=== PATIENT | male | born 1945 | race Caucasian/White ===

== ENCOUNTER → 2019-07-06 11:17 | Outpatient (CLI) | payer BC, MEDICARE, SELFPAY ==
--- NOTE | 2019-07-06 11:32 | XR_ITS ---
PROCEDURE: XR LUMBAR SPINE MIN 4V CLINICAL INDICATION: ACUTE MIDLINE LOW BACK PAIN COMPARISON: No exams were available for comparison FINDINGS: Bridging osteophytes are noted on the left at L2-L3. There is degenerative disc disease from L2-S1 worse at L4-5 and L5-S1 levels with bridging osteophytes anteriorly from L2-S1. There are facet arthritic changes at L5-S1. No fracture or dislocation. No lytic or blastic change. IMPRESSION: Lumbar spondylosis with degenerative disc disease, osteophyte formation, and facet arthritic change Dictated by: Joe Salter MD 07/06/2019 12:26 Electronically signed by Joe Salter MD in [place] 07/06/2019 12:26
== END ==
PROVIDERS: PCP Family Medicine; Visit Provider Family Medicine
DX: M54.5 Low back pain (principal)
CPT/HCPCS: 72110

== ENCOUNTER 2020-06-26 09:45 | Emergency (ER) | payer BC, MEDICARE, SELFPAY ==
--- NOTE | 2020-06-26 10:27 | HMH.EDUTC ---
[facility] [place] Clinical Impression: Exposure to COVID-19 virus Disposition: Home, Self-Care Condition on Discharge: Good Instructions: Preventing the Spread of Coronavirus Discharge Instructions Additional Instructions: Drink plenty of fluids. Take tylenol for pain or fever. Return if you begin to have difficulty breathing. Follow up with your regular doctor. GO TO THE ER FOR ANY WORSENING SYMPTOMS Referrals: Daquan Mack MD [Primary Care Provider] - Time of Disposition: 10:47 Medical Decision Making - Medical Records Medical records reviewed: No: I reviewed the patient's medical records. - Ernie Inquiry Pt receiving controlled substance: No Vital Signs: 06/26/20 10:46 06/26/20 11:03 Temperature 98.3 F 98 F Temperature Source Oral Oral Pulse Rate 78 Pulse Rate [Right] 75 Respiratory Rate 16 16 Blood Pressure 173/74 H Blood Pressure [Right Arm] 173/80 H Blood Pressure Mean [Right Arm] 111 Blood Pressure Source Automatic Cuff Blood Pressure Source [Right Arm] Automatic Cuff Blood Pressure Position Sitting Blood Pressure Position [Right Arm] Sitting 02 Sat by Pulse Oximetry 98 Oxygen Delivery Method Room Air Room Air [facility] [place] - General Stated complaint: Covid test Time Seen by Provider: 06/26/20 10:27 - History of Present Illness Provider Complaint: He was exposed to covid. He denies any symptoms at this time. [facility] History - Hepatitis A Screen Attestation statement:: This patient has been screened for Hepatitis A risk factors. I have reviewed the patient's past medical history: Yes ROS Obtained: Yes All systems reviewed & no additional complaints - Constitutional Constitutional: Reports system reviewed and no additional complaints, except as docu - Eyes Eyes: Reports system reviewed and no additional complaints, except as docu - ENT Ears, Nose, Mouth, and Throat: Reports system reviewed and no additional complaints, except as docu - Cardiovascular Cardiovascular: Reports system reviewed and no additional complaints, except as docu - Respiratory Respiratory: Yes system reviewed and no additional complaints, except as docu - Gastrointestinal Gastrointestingal: Reports: system reviewed and no additional complaints, except as docu Physical Exam - General General appearance: alert, in no apparent distress - Head Head exam: atraumatic, normocephalic, normal inspection - Eye Eye exam: Present: normal appearance, PERRL, EOMI - ENT ENT exam: Present: normal exam, normal oropharynx, mucous membranes moist, TM's normal bilaterally, normal external ear exam - Neck Neck exam: Present: normal inspection, full ROM, trachea midline. Absent: meningismus, lymphadenopathy - Chest Chest inspection: Present: normal inspection, symmetric chest wall rise. Absent: tenderness - Respiratory Respiratory exam: Present: normal lung sounds bilaterally. Absent: respiratory distress - Cardiovascular Cardiovascular exam: Present: regular rate, normal rhythm. Absent: JVD - Abdominal Exam Abdominal exam: Present: soft, normal bowel sounds. Absent: distention, tenderness, guarding - Extremities Exam Extremities exam: Present: normal inspection, full ROM, normal capillary refill. Absent: calf tenderness - Back Exam Back exam: Present: normal inspection. Absent: tenderness - Neurological Exam Neurological exam: Present: alert, oriented X3 - Psychiatric Psychiatric exam: Present: normal affect, normal mood - Skin Skin exam: Present: warm, dry, intact, normal color - Lymphatic Lymphatic Findings: no adenopathy
[2020-06-26 10:46] VITALS: BP 173/80; PULSE 75; RESP 16; TEMP 36.8; O2SAT 98; BMI 35.4
[2020-06-26 11:03] VITALS: BP 173/74; PULSE 78; RESP 16; TEMP 36.6; O2SAT 98
== END 2020-06-26 11:04 | disposition home or self-care (01) ==
PROVIDERS: Emergency Provider Nurse Practitioner Family; PCP Family Medicine
DX: Z20.828 Contact with and (suspected) exposure to other viral communicable diseases (principal)
CPT/HCPCS: 99201; U0003

== ENCOUNTER 2020-07-03 07:56 | Emergency (ER) | payer OTHER, SELFPAY ==
[2020-07-03 08:02] VITALS: BP 158/77; PULSE 93; RESP 17; TEMP 36.7; O2SAT 93; BMI 34.4
--- NOTE | 2020-07-03 08:16 | CT_ITS ---
PROCEDURE: CT FACIAL BONES WO CON CLINICAL HISTORY: trauma Posttraumatic pain, nasal injury with pain and swelling COMPARISON: No exams were available for comparison TECHNIQUE: Axial images obtained with sagittal and coronal reformats. All CT scans at the facility use one or more dose reduction, viz: automated exposure control, ma/kV adjustment per patient size (including targeted exams where dose is matched to indication, i.e. head), or iterative reconstruction technique. FINDINGS: There is a minimally impacted fracture involving the distal aspect of the nasal bone with minimal inferior angulation of the distal fracture fragment. There is some associated soft tissue gas and soft tissue swelling. The anterior aspect of the bony nasal septum is deviated toward the right without obvious fracture. The inferior aspect of the nasal septum is deviated toward the left. There is prominence of the inferior nasal turbinate on the left. There is narrowing of the left-sided nasal canal. Mild mucosal thickening involves the maxillary sinuses. No sinus air-fluid level is evident. The TMJs have an unremarkable appearance as do the orbits. IMPRESSION: Minimally depressed fracture involves the anterior aspect of the nasal bone with laceration and soft tissue swelling. Nasal septal deviation with narrowing of the nasal canal anteriorly on the right and posteriorly on the left. Dictated by: Joe Salter MD 07/03/2020 09:27 Joe Salter MD in [place] 07/03/2020 09:27
[2020-07-03 08:20] VITALS: BP 134/65; PULSE 84; O2SAT 95
--- NOTE | 2020-07-03 08:34 | HMH.EDFALL ---
ED Disposition Clinical Impression: Nasal bone fracture Qualifiers: Encounter type: initial encounter Fracture type: open Qualified Code(s): S02.2XXB - Fracture of nasal bones, initial encounter for open fracture Laceration of nose without foreign body Qualifiers: Encounter type: initial encounter Qualified Code(s): S01.21XA - Laceration without foreign body of nose, initial encounter Disposition: Home, Self-Care Condition on Discharge: Good Instructions: DI for Nose Fracture Prescriptions: Amoxicillin/Potassium Clav [Amox-Clav 875-125 mg Tablet] 1 tab PO BID #14 tab [facility]: [facility] Hydrocodone/Acetaminophen [[place] 5-325 Tablet] 1 each PO Q8 #7 tablet Transmission Status: [facility] Referrals: Daquan Mack MD [Primary Care Provider] - [facility] [Other] - Critical Care Critical Care Time: No Attestation: On 07/03/20, the high probability of a clinically significant, sudden or life threatening deterioration of the following system(s) required my full and direct attention, intervention and personal management. The time I documented below is in addition to time spent performing reported procedures but includes the following listed in this critical care notation. Medical Decision Making - Medical Records Medical records reviewed: Yes: I reviewed the patient's medical records. - Ernie Inquiry Pt receiving controlled substance: Yes Ernie was queried for this patient: No Reason not queried -: Emergent pt cond-no time Risks and benefits of using a controlled substance: were discussed with pt by me Vital Signs: 07/03/20 08:02 07/03/20 08:20 07/03/20 08:46 Temperature 98.1 F Temperature Source Oral Pulse Rate [Right Radial] 93 H 84 85 Respiratory Rate 17 Blood Pressure [Right Arm] 158/77 H 134/65 142/66 H Blood Pressure Mean [Right Arm] 104 88 91 Blood Pressure Source [Right Arm] Automatic Cuff Automatic Cuff Blood Pressure Position [Right Arm] Sitting Sitting 02 Sat by Pulse Oximetry 93 L 95 93 L Oxygen Delivery Method Room Air Room Air 07/03/20 09:00 Temperature Temperature Source Pulse Rate [Right Radial] 80 Respiratory Rate Blood Pressure [Right Arm] 162/67 H Blood Pressure Mean [Right Arm] 98 Blood Pressure Source [Right Arm] Automatic Cuff Blood Pressure Position [Right Arm] Sitting 02 Sat by Pulse Oximetry 96 Oxygen Delivery Method Room Air Orders (Tests/Meds): ED MEDICATIONS Discontinued Medications Generic Name Dose Route Start Last Admin Trade Name Franklynq PRN Reason Stop Dose Admin Hydrocodone Bitart/Acetaminophen 1 tab 07/03/20 08:15 07/03/20 08:58 Hydrocodone/Apap 5/325 Mg Tablet PO 07/03/20 08:16 1 tab ONCE ONE Administration Tetanus/Reduced Diphtheria/Acell Pertussis 0.5 ml 07/03/20 08:15 07/03/20 08:59 Tet/Diphth/Pert-Adult 0.5ml Syringe IM 07/03/20 08:16 0.5 ml .ONCE ONE Administration - CT Data CT Scan: Other (facial) Time Received: 09:[address] Reviewed: Yes: I have reviewed the patient's CT results, I have viewed the radiologist's interpretation Findings Narrative: IMPRESSION: Minimally depressed fracture involves the anterior aspect of the nasal bone with laceration and soft tissue swelling. Nasal septal deviation with narrowing of the nasal canal anteriorly on the right and posteriorly on the left. - Reevaluation(s) Time: 09:49 Reevaluation #1: On reevaluation, the patient is doing much better. Does have evidence of nasal fracture. Thankfully this is open. The patient will be placed on a short course of antibiotics. Needs to follow-up with oral maxillofacial surgery. Given strict return precautions. Verbalized understanding. Medical Decision Narrative: 74-year-old male presented to the emergency department with an accidental fall. Patient small laceration to the nasal bridge. Imaging of the maxillofacial will be obtained. Fall HPI - General
[2020-07-03 08:46] VITALS: BP 142/66; PULSE 85; O2SAT 93
[2020-07-03 09:00] VITALS: BP 162/67; PULSE 80; O2SAT 96
[2020-07-03 09:30] VITALS: BP 152/68; PULSE 75; O2SAT 92
--- NOTE | 2020-07-03 09:44 | PC.NURSE ---
at bedside suturing.
[2020-07-03 09:58] VITALS: BP 177/96; PULSE 89; RESP 19; TEMP 36.8; O2SAT 98
== END 2020-07-03 10:04 | disposition home or self-care (01) ==
PROVIDERS: Emergency Provider Emergency Medicine; PCP Family Medicine
DX: S02.2XXB Fracture of nasal bones, initial encounter for open fracture (principal); S01.21XA Laceration without foreign body of nose, initial encounter; Z23 Encounter for immunization; W01.10XA Fall on same level from slipping, tripping and stumbling with subsequent striking against unspecified object, initial encounter; Y92.69 Other specified industrial and construction area as the place of occurrence of the external cause; Y99.0 Civilian activity done for income or pay; Z87.891 Personal history of nicotine dependence
CPT/HCPCS: 12011; 70486; 90471; 90715; 99283

== ENCOUNTER → 2022-05-30 15:04 | Outpatient (CLI) | payer BC, MEDICARE, SELFPAY ==
--- NOTE | 2022-05-30 15:16 | XR_ITS ---
FINAL REPORT CLINICAL HISTORY: ABD PAIN FINDINGS: A PA view of the chest was obtained. The mediastinum is unremarkable. There is mild left base atelectasis or scar. There is no free air beneath the diaphragm. There are moderate degenerative changes of the spine. Upright and supine views of the abdomen reveal a nonspecific, nonobstructive bowel gas pattern. No abnormal calcifications are identified. IMPRESSION: Left base atelectasis or scar. Reviewed, Interpreted and Dictated by Jayy Sommers III, MD Transcribed by Sanjuanita Raya Authenticated and [facility]
== END ==
PROVIDERS: PCP Family Medicine; Visit Provider Family Medicine
DX: K59.00 Constipation, unspecified (principal)
CPT/HCPCS: 74021

== ENCOUNTER 2023-02-22 11:52 | Emergency (ER) | payer BC, MEDICARE, SELFPAY ==
[2023-02-22 12:05] VITALS: BP 130/70; PULSE 84; RESP 18; TEMP 36.6; O2SAT 97; BMI 34.8
--- NOTE | 2023-02-22 12:43 | EXP.UTC ---
Discharge Plan Disposition Patient Disposition: Home, Self-Care Condition: Good Prescriptions Prescriptions: New polyethylene glycol 3350 [ClearLax] 17 gram/dose powder 17 g PO DAILY Qty: 238 0RF No Action hydrochlorothiazide 12.5 mg tablet 12.5 mg PO fenofibrate 160 mg tablet 160 mg PO Patient Comments: TAKE 1 TABLET BY MOUTH ONCE DAILY FOR 90 DAYS metformin 500 mg tablet extended release 24 hr PO Patient Comments: TAKE 1 TABLET BY MOUTH ONCE DAILY FOR 90 DAYS losartan 100 mg tablet 100 mg PO Patient Comments: TAKE 1 TABLET BY MOUTH ONCE DAILY FOR 90 DAYS pravastatin 40 mg tablet 40 mg PO hydrocodone-acetaminophen 1 EACH tablet 1 each PO Q8 Qty: 7 0RF amoxicillin-pot clavulanate 1 EACH tablet 1 tab PO BID Qty: 14 0RF Referrals Follow up/Referrals: Daquan Mack MD [Primary Care Provider] - See instructions Activity Restrictions/Add. Instructions Additional Instructions/Restrictions: Take 2 dose of Clearlax today and then once daily afterwards as needed. Clinical Impressions Clinical Impression: Acute constipation Instructions Patient Instructions: DI for Constipation Discharge ED Provider: Sharon Palacios [facility] General Stated complaint: difficulty using the restroom Mode of Arrival: Ambulatory Source of Information: Patient Limitations: No Limitations Time Seen by Provider: 02/22/23 12:33 Description of Symptoms (Recalled from Triage Doc. by RN): PATIENT C/O NO BOWEL MOVEMENT X 3 DAYS. DENIES NAUSEA, VOMITING, AND ABDOMINAL PAIN HEENT Symptoms (Recalled from RN notes): No Resp Symptoms (Recalled from RN notes): No Skin Symptoms (Recalled from RN notes): No MS Symptoms (Recalled from RN notes): No Functional Status (Recalled from RN notes): WNL History of Present Illness Provider Complaint: Pt relates that he has not had a normal bowel movement for the past 3 days. He reports that he has only had small bowel movements and his belly feels full. He denies any abdominal pain, nausea, or vomiting. He denies taking anything to assist him to have a bowel movement. Related Data Home Medications Medication Instructions Recorded Confirmed fenofibrate 160 mg tablet 160 mg PO 07/30/20 07/30/20 hydrochlorothiazide 12.5 mg tablet 12.5 mg PO 07/30/20 07/30/20 losartan 100 mg tablet 100 mg PO 12/31/20 12/31/20 metformin 500 mg tablet,extended ea PO 07/30/20 07/30/20 release 24 hr pravastatin 40 mg tablet 40 mg PO 07/30/20 07/30/20 Previous Rx's Medication Instructions Recorded amoxicillin 875 mg-potassium 1 tab PO BID #14 tabs 07/03/20 clavulanate 125 mg tablet hydrocodone 5 mg-acetaminophen 325 1 each PO Q8 #7 tabs 07/03/20 mg tablet polyethylene glycol 3350 17 17 g PO DAILY #238 grams 02/22/23 gram/dose oral powder (ClearLax) Allergies Allergy/AdvReac Type Severity Reaction Status Date / Time No Known Allergies Allergy Verified 07/30/20 09:01 Worker's Comp Is this a Worker's Comp case?: No [facility] Disclaimer: The information contained in this section may have been updated after the patient was seen, as this information can be updated by other users. Social History Smoking Status: Former smoker alcohol intake: current current occupational status: employed Travel in the last 8 weeks: None ROS Obtained: Yes All systems reviewed & no additional complaints except as documented Constitutional Constitutional: Reports system reviewed and no additional complaints, except as documented Eyes Eyes: Reports system reviewed and no additional complaints, except as documented ENT Ears, Nose, Mouth, and Throat: Reports system reviewed and no additional complaints, except as documented Cardiovascular Cardiovascular: Reports system reviewed and no additional complaints, except as documented Respiratory Respiratory: Reports system reviewed and no additional complaints, except as documented Danii
[2023-02-22 12:48] VITALS: BP 130/70; PULSE 84; RESP 18; TEMP 36.6; O2SAT 97
== END 2023-02-22 12:50 | disposition home or self-care (01) ==
PROVIDERS: Emergency Provider Nurse Practitioner Family; PCP Family Medicine
DX: K59.00 Constipation, unspecified (principal); Z87.891 Personal history of nicotine dependence
CPT/HCPCS: 99212; 99214; G0463

== ENCOUNTER → 2023-02-25 09:59 | Outpatient (CLI) | payer BC, MEDICARE, SELFPAY ==
--- NOTE | 2023-02-25 10:06 | XR_ITS ---
PROCEDURE INFORMATION: Exam: XR Abdomen Exam date and time: 02/25/2023 10:09 AM Age: 77 years old Clinical indication: Abdominal pain; Generalized TECHNIQUE: Imaging protocol: Radiologic exam of the abdomen. Views: Frontal supine view of the abdomen. 1 View. COMPARISON: CR XR ACUTE ABDOMEN SERIES 05/30/2022 3:26 PM FINDINGS: Gastrointestinal tract: There are mildly dilated loops of small bowel over the left lower quadrant. Bones/joints: Degenerative changes are noted in the bones. IMPRESSION: Query localized ileus or enteritis in the left lower quadrant.
== END ==
PROVIDERS: PCP Family Medicine; Visit Provider Family Medicine
DX: R10.84 Generalized abdominal pain (principal)
CPT/HCPCS: 74018

== ENCOUNTER 2024-04-27 11:21 | Outpatient (CLI) | payer BC, MEDICARE, SELFPAY ==
--- NOTE | 2024-04-27 11:31 | XR_ITS ---
PROCEDURE INFORMATION: Exam: XR Right Calcaneus Exam date and time: 04/27/2024 11:32 AM Age: 78 years old Clinical indication: Pain; Heel; Right; Additional info: Right heel pain TECHNIQUE: Imaging protocol: Radiologic exam of the right calcaneus. Views: 2 or more views. Total images: 2 COMPARISON: No relevant prior studies available. FINDINGS: Bones/joints: Calcaneal spurs are present. No evidence of acute fracture. Soft tissues: Mild soft tissue swelling. IMPRESSION: 1. Calcaneal spurs are present. 2. No evidence of acute fracture. 3. Mild soft tissue swelling.
== END 2024-04-27 23:59 | disposition home or self-care (01) ==
LOC: RAD 11:23
PROVIDERS: PCP Family Medicine; Visit Provider Family Medicine
DX: M79.671 Pain in right foot (principal)
CPT/HCPCS: 73650